=== PATIENT | female | born 2005 | race African-American/Black ===

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

== ENCOUNTER 2023-08-10 14:30 | Emergency (ER) | payer MEDICAID, OTHER, SELFPAY ==
[~2023-08-10] VITALS: Ht 175.3 cm; Wt 177.3 kg
[2023-08-10 14:30] VITALS: TEMP 97.8
[2023-08-10 15:13] LABS: BASO % 0.3 % (0.0-1.0); EOS # 0.2 10^3/uL (0.0-0.5); EOS % 1.7 % (0.0-3.0); HEMATOCRIT 35.3 % (36.0-47.0); HEMOGLOBIN 11.2 g/dl (12.0-15.5); LYMPH # 1.8 10^3/uL (1.5-5.0); LYMPH % 18.5 % (24.0-44.0); MEAN CORPUSCULAR HGB CONC 31.7 g/dl (32.0-36.5); MEAN CORPUSCULAR VOLUME 85.1 fl (80.0-96.0); MONO # 0.8 10^3/uL (0.0-0.8); MONO % 8.3 % (2.0-8.0); NEUTROPHILS # 6.9 10^3/uL (1.5-8.5); NEUTROPHILS % 70.9 % (36.0-66.0); PLATELET COUNT, AUTOMATED 266 10^3/uL (150-450); RED BLOOD COUNT 4.15 10^6/uL (4.00-5.40); WHITE BLOOD COUNT 9.7 10^3/uL (4.0-10.0)
[2023-08-10 15:30] LABS: INR 0.98; LIPASE 20 U/L (12-53); PARTIAL THROMBOPLASTIN TIME 29.1 SECONDS (24.8-34.2); PROTHROMBIN TIME 12.7 SECONDS (12.5-14.5)
[2023-08-10 15:32] LABS: ALBUMIN 3.2 G/DL (3.2-5.2); ALKALINE PHOSPHATASE 119 U/L (46-116); ALT/SGPT 19 U/L (7.0-40); AST/SGOT 11 U/L (<34); BILIRUBIN,DIRECT < 0.1 MG/DL (<0.4); BILIRUBIN,TOTAL 0.3 MG/DL (0.3-1.2); BLOOD UREA NITROGEN 6 MG/DL (9-23); CALCIUM LEVEL 9.2 MG/DL (8.5-10.1); CARBON DIOXIDE LEVEL 22 MMOL/L (20-31); CHLORIDE LEVEL 108 MMOL/L (98-107); CK-MB VALUE MASS < 1.0 NG/ML (<3.6); CREATININE FOR GFR 0.62 MG/DL (0.55-1.30); GLUCOSE, FASTING 91 MG/DL (60-100); POTASSIUM SERUM 3.9 MMOL/L (3.5-5.1); SODIUM LEVEL 137 MMOL/L (136-145); TOTAL PROTEIN 6.2 G/DL (5.7-8.2)
[2023-08-10 15:36] LABS: FREE T4 1.01 NG/DL (0.83-1.43); THYROID STIMULATING HORMONE 1.712 uIU/ML (0.48-4.17)
[2023-08-10 15:53] LABS: CPK CREATINE PHOSPHOKINASE 58 U/L (34-145); HCG, SERUM QUANTITATIVE 36283.1 MIU/ML (<4.2); MB/CK RELATIVE INDEX 1.72 (< OR =4)
[2023-08-10 17:36] LABS: APPEARANCE, URINE HAZY (CLEAR); BACTERIA, URINE AUTO NEGATIVE (NEGATIVE); BILIRUBIN, URINE AUTO NEGATIVE (NEGATIVE); BLOOD, URINE BLOOD NEGATIVE (NEGATIVE); CALCIUM OXALATE CRYSTALS LARGE; COLOR, URINE YELLOW (YELLOW); GLUCOSE, URINE (UA) AUTO NEGATIVE (NEGATIVE); KETONE, URINE AUTO NEGATIVE (NEGATIVE); LEUKOCYTE ESTERASE, URINE AUTO NEGATIVE (NEGATIVE); MUCUS, URINE SMALL (NEGATIVE); NITRITE, URINE AUTO NEGATIVE (NEGATIVE); PROTEIN, URINE AUTO NEGATIVE (NEGATIVE); RBC, URINE AUTO 3 /HPF (0-3); SPECIFIC GRAVITY URINE AUTO 1.016 (1.002-1.035); SQUAMOUS EPITHELIAL CELL UR AU 3 /HPF (0-6); UROBILINOGEN, URINE AUTO 0.2 mg/dL (0.0-2.0); WBC, URINE AUTO 4 /HPF (0-3)
[2023-08-10 18:00] VITALS: BP 137/66; O2SAT 100
== END 2023-08-10 18:24 | disposition home or self-care (01) ==
LOC: M ED 14:30
DX: O12.00 Gestational edema, unspecified trimester (principal); O20.8 Other hemorrhage in early pregnancy; R04.0 Epistaxis; R94.31 Abnormal electrocardiogram [ECG] [EKG]; Z91.030 Bee allergy status

== ENCOUNTER 2023-08-19 03:53 | Emergency (ER) | payer MEDICAID, OTHER ==
[~2023-08-19] VITALS: Ht 175.3 cm; Wt 175.5 kg
[2023-08-19 04:35] LABS: BASO % 0.2 % (0.0-1.0); EOS # 0.1 10^3/uL (0.0-0.5); EOS % 1.5 % (0.0-3.0); LYMPH # 1.1 10^3/uL (1.5-5.0); MEAN CORPUSCULAR HEMOGLOBIN 26.9 pg (27.0-33.0); MEAN CORPUSCULAR HGB CONC 31.6 g/dl (32.0-36.5); MEAN CORPUSCULAR VOLUME 85.2 fl (80.0-96.0); MONO # 0.6 10^3/uL (0.0-0.8); NEUTROPHILS # 7.1 10^3/uL (1.5-8.5); PLATELET COUNT, AUTOMATED 256 10^3/uL (150-450); RED BLOOD COUNT 4.46 10^6/uL (4.00-5.40)
[2023-08-19 04:59] LABS: LIPASE 20 U/L (12-53)
[2023-08-19 05:01] LABS: ALBUMIN 3.1 G/DL (3.2-5.2); ALKALINE PHOSPHATASE 116 U/L (46-116); ALT/SGPT 25 U/L (7.0-40); AST/SGOT 11 U/L (<34); BILIRUBIN,DIRECT 0.1 MG/DL (<0.4); BILIRUBIN,TOTAL 0.4 MG/DL (0.3-1.2); BLOOD UREA NITROGEN 7 MG/DL (9-23); CALCIUM LEVEL 8.5 MG/DL (8.5-10.1); CARBON DIOXIDE LEVEL 21 MMOL/L (20-31); CHLORIDE LEVEL 109 MMOL/L (98-107); CREATININE FOR GFR 0.51 MG/DL (0.55-1.30); GLUCOSE, FASTING 106 MG/DL (60-100); POTASSIUM SERUM 3.9 MMOL/L (3.5-5.1); SODIUM LEVEL 137 MMOL/L (136-145); TOTAL PROTEIN 6.3 G/DL (5.7-8.2)
[2023-08-19 05:27] LABS: HCG, SERUM QUALITATIVE POSITIVE (NEGATIVE)
[2023-08-19] MEDS: ONDANSETRON 4MG 2ML VIAL IV ONE (06:28)
[2023-08-19] MEDS: NS 1,000 ML IV ONE (06:28)
[2023-08-19] MEDS ORDERED: UNIS25TA5 PO (08:19)
[2023-08-19] MEDS ORDERED: ONDA-282 PO (08:19)
[2023-08-19] MEDS ORDERED: PYRI25TA2 PO (08:19)
[2023-08-19 09:02] VITALS: BP 145/72; TEMP 97.8; O2SAT 98
[2023-08-19] MEDS ORDERED: FAMO20TA PO (09:05)
[2023-08-19] MEDS: FAMOTIDINE 20 MG TAB PO ONE (09:15)
[2023-08-20] MEDS ORDERED: VENTAER INH (12:04)
== END 2023-08-19 09:21 | disposition home or self-care (01) ==
LOC: M ED 03:53
DX: O21.1 Hyperemesis gravidarum with metabolic disturbance (principal); O99.612 Diseases of the digestive system complicating pregnancy, second trimester; Z3A.12 12 weeks gestation of pregnancy; Z91.030 Bee allergy status; Z79.51 Long term (current) use of inhaled steroids
CPT/HCPCS: 76801; 80048; 80076; 81001; 83690; 84703; 85025; 96361; 96374; 99284; J2405

== ENCOUNTER 2023-08-20 05:36 | Emergency (ER) | payer OTHER ==
[~2023-08-20] VITALS: Ht 172.7 cm; Wt 173.3 kg
[~2023-08-20 05:36] MED LIST changes: +FAMO20TA PO; +ONDA-282 PO; +PYRI25TA2 PO; +UNIS25TA5 PO
[2023-08-20 08:01] LABS: BASO % 0.1 % (0.0-1.0); EOS % 0.2 % (0.0-3.0); HEMATOCRIT 35.1 % (36.0-47.0); HEMOGLOBIN 11.1 g/dl (12.0-15.5); LYMPH # 0.9 10^3/uL (1.5-5.0); LYMPH % 11.5 % (24.0-44.0); MEAN CORPUSCULAR HEMOGLOBIN 26.9 pg (27.0-33.0); MEAN CORPUSCULAR HGB CONC 31.6 g/dl (32.0-36.5); MONO # 0.7 10^3/uL (0.0-0.8); MONO % 9.1 % (2.0-8.0); NEUTROPHILS # 6.4 10^3/uL (1.5-8.5); NEUTROPHILS % 78.9 % (36.0-66.0); PLATELET COUNT, AUTOMATED 227 10^3/uL (150-450); RED BLOOD COUNT 4.13 10^6/uL (4.00-5.40); WHITE BLOOD COUNT 8.1 10^3/uL (4.0-10.0)
[2023-08-20 09:02] LABS: ALKALINE PHOSPHATASE 105 U/L (46-116); ALT/SGPT 19 U/L (7.0-40); AST/SGOT 9 U/L (<34); BILIRUBIN,DIRECT 0.1 MG/DL (<0.4); BILIRUBIN,TOTAL 0.4 MG/DL (0.3-1.2); BLOOD UREA NITROGEN < 5 MG/DL (9-23); CALCIUM LEVEL 8.3 MG/DL (8.5-10.1); CARBON DIOXIDE LEVEL 21 MMOL/L (20-31); CHLORIDE LEVEL 107 MMOL/L (98-107); CK-MB VALUE MASS < 1.0 NG/ML (<3.6); CPK CREATINE PHOSPHOKINASE 46 U/L (34-145); CREATININE FOR GFR 0.46 MG/DL (0.55-1.30); GLUCOSE, FASTING 95 MG/DL (60-100); MB/CK RELATIVE INDEX 2.17 (< OR =4); POTASSIUM SERUM 3.5 MMOL/L (3.5-5.1); SODIUM LEVEL 136 MMOL/L (136-145)
[2023-08-20] MEDS: ALBUTEROL 90 MCG/ACT 8GM HFA INHALER INH ONE (09:15)
[2023-08-20 09:44] LABS: CK-MB VALUE MASS < 1.0 NG/ML (<3.6)
[2023-08-20 09:45] LABS: CPK CREATINE PHOSPHOKINASE 42 U/L (34-145); MB/CK RELATIVE INDEX 2.38 (< OR =4)
[2023-08-20 11:33] LABS: CK-MB VALUE MASS < 1.0 NG/ML (<3.6)
[2023-08-20 11:34] LABS: CPK CREATINE PHOSPHOKINASE 44 U/L (34-145); MB/CK RELATIVE INDEX 2.27 (< OR =4)
[2023-08-20] MEDS ORDERED: VENTAER INH (12:04)
[2023-08-20 12:32] VITALS: BP 153/73; TEMP 97.3; O2SAT 99
== END 2023-08-20 12:44 | disposition home or self-care (01) ==
LOC: M ED 05:36
DX: R07.9 Chest pain, unspecified (principal); J98.01 Acute bronchospasm; R00.0 Tachycardia, unspecified; I25.2 Old myocardial infarction; Z91.030 Bee allergy status; Z79.51 Long term (current) use of inhaled steroids

== ENCOUNTER → 2023-09-06 | Outpatient (CLI) | payer OTHER ==
[~2023-09-06] MED LIST changes: +VENTAER INH
== END ==
LOC: M WHC 10:21
PROVIDERS: ATTEND Obstetrics & Gynecology
DX: Z53.9 Procedure and treatment not carried out, unspecified reason (principal)

== ENCOUNTER → 2023-09-06 | Outpatient (CLI) | payer OTHER ==
[2023-09-06 14:26] LABS: HEMATOCRIT 36.2 % (36.0-47.0); HEMOGLOBIN 11.5 g/dl (12.0-15.5); MEAN CORPUSCULAR HEMOGLOBIN 27.1 pg (27.0-33.0); MEAN CORPUSCULAR HGB CONC 31.8 g/dl (32.0-36.5); MEAN CORPUSCULAR VOLUME 85.2 fl (80.0-96.0); PLATELET COUNT, AUTOMATED 231 10^3/uL (150-450); RED BLOOD COUNT 4.25 10^6/uL (4.00-5.40); WHITE BLOOD COUNT 8.3 10^3/uL (4.0-10.0)
[2023-09-06 15:09] LABS: HEMOGLOBIN A1c 4.8 % (4.0-6.0)
[2023-09-06 15:18] LABS: HIV 1&2 SCREEN NEGATIVE (NEGATIVE)
[2023-09-06 15:27] LABS: HEPATITIS C VIRUS ABY INDEX < 0.02 INDEX (<0.8)
== END ==
LOC: M PLALAB 11:09
PROVIDERS: ATTEND Obstetrics & Gynecology
DX: Z31.430 Encounter of female for testing for genetic disease carrier status for procreative management (principal); Z3A.15 15 weeks gestation of pregnancy

== ENCOUNTER → 2023-09-16 | Outpatient (CLI) | payer OTHER | LOC: M PLALAB 15:20 | PROVIDERS: ATTEND Obstetrics & Gynecology | DX: Z34.02 Encounter for supervision of normal first pregnancy, second trimester (principal) ==

== ENCOUNTER → 2023-10-10 | Outpatient (CLI) | payer OTHER | LOC: M WHC 13:17 | PROVIDERS: ATTEND Obstetrics & Gynecology | DX: Z34.82 Encounter for supervision of other normal pregnancy, second trimester (principal) ==

== ENCOUNTER → 2023-10-11 | Outpatient (REF) | payer OTHER ==
[2023-10-11 17:25] LABS: GC DNA AMPLIFICATION NEGATIVE (NEGATIVE)
== END ==
LOC: M PLALAB 10:16
PROVIDERS: ATTEND Obstetrics & Gynecology
DX: Z34.81 Encounter for supervision of other normal pregnancy, first trimester (principal)

== ENCOUNTER → 2023-11-12 | Outpatient (CLI) | payer OTHER | LOC: M PLALAB 08:32 | PROVIDERS: ATTEND Obstetrics & Gynecology | DX: Z34.82 Encounter for supervision of other normal pregnancy, second trimester (principal); Z3A.15 15 weeks gestation of pregnancy ==

== ENCOUNTER → 2023-11-18 | Outpatient (CLI) | payer OTHER | LOC: M WHC 10:07 | PROVIDERS: ATTEND Advanced Practice Midwife | DX: Z34.02 Encounter for supervision of normal first pregnancy, second trimester (principal); Z3A.25 25 weeks gestation of pregnancy ==

== ENCOUNTER 2023-11-25 10:28 | Emergency (ER) | payer OTHER ==
[~2023-11-25] VITALS: Ht 175.3 cm; Wt 175.3 kg
[2023-11-25 10:31] VITALS: BP 141/67; TEMP 97.9; O2SAT 97
[2023-11-25] MEDS ORDERED: ACET-907 PO (11:41)
[2023-11-25] MEDS ORDERED: PENI500T PO (12:15)
== END 2023-11-25 12:26 | disposition home or self-care (01) ==
LOC: M ED 10:28
DX: K04.7 Periapical abscess without sinus (principal); K08.89 Other specified disorders of teeth and supporting structures; J45.909 Unspecified asthma, uncomplicated; Z91.030 Bee allergy status; Z79.1 Long term (current) use of non-steroidal anti-inflammatories (NSAID); Z79.2 Long term (current) use of antibiotics; Z79.51 Long term (current) use of inhaled steroids

== ENCOUNTER 2024-02-02 17:02 | Outpatient (CLI) | payer OTHER ==
[~2024-02-02] VITALS: Ht 170.2 cm; Wt 181.9 kg
[~2024-02-02 17:02] MED LIST changes: +ACET-907 PO; +PENI500T PO
[2024-02-02] MEDS ORDERED: PRENTAB9 PO (17:26)
[2024-02-02 17:29] VITALS: BP 137/80
[2024-02-02] MEDS ORDERED: HOME MED LIST COMPLETE! XX SCH (17:30)
== END 2024-02-02 18:35 | disposition home or self-care (01) ==
LOC: M LDO 17:02
PROVIDERS: ATTEND Obstetrics & Gynecology
DX: O26.893 Other specified pregnancy related conditions, third trimester (principal); O99.213 Obesity complicating pregnancy, third trimester; O98.513 Other viral diseases complicating pregnancy, third trimester; O99.613 Diseases of the digestive system complicating pregnancy, third trimester; R60.9 Edema, unspecified; E66.01 Morbid (severe) obesity due to excess calories; B00.9 Herpesviral infection, unspecified; R12 Heartburn; Z3A.36 36 weeks gestation of pregnancy
CPT/HCPCS: 59025; G0463

== ENCOUNTER → 2024-02-06 | Outpatient (REF) | payer OTHER ==
[~2024-02-06] MED LIST changes: +PRENTAB9 PO
== END ==
LOC: M SFHCWAGY 08:00
PROVIDERS: ATTEND Obstetrics & Gynecology
DX: Z36.85 Encounter for antenatal screening for Streptococcus B (principal); Z3A.36 36 weeks gestation of pregnancy

== ENCOUNTER 2024-02-20 05:15 | Inpatient (IN) | payer OTHER ==
[2024-02-20] VITALS (10 sets, daily range): BP systolic 125–146; BP diastolic 64–75; TEMP 97.4; O2SAT 97–98
[~2024-02-20] VITALS: Ht 170.2 cm; Wt 183.2 kg
[~2024-02-20 05:15] MED LIST changes: +VALA1TAB5 PO
[2024-02-20] MEDS ORDERED: ceFAZolin SOD 3 GM IV Place Holder IV ONE (05:25)
[2024-02-20] MEDS: LACTATED RINGER'S 1000 ML IV STA (05:52)
[2024-02-20 05:56] LABS: HEMATOCRIT 33.7 % (36.0-47.0); HEMOGLOBIN 10.2 g/dl (12.0-15.5); MEAN CORPUSCULAR HEMOGLOBIN 25.2 pg (27.0-33.0); MEAN CORPUSCULAR HGB CONC 30.3 g/dl (32.0-36.5); MEAN CORPUSCULAR VOLUME 83.2 fl (80.0-96.0); PLATELET COUNT, AUTOMATED 279 10^3/uL (150-450); RED BLOOD COUNT 4.05 10^6/uL (4.00-5.40); WHITE BLOOD COUNT 11.6 10^3/uL (4.0-10.0)
[2024-02-20 07:20] LABS: HEPATITIS C VIRUS ABY INDEX 0.02 INDEX (<0.8)
[2024-02-20] MEDS: BICITRA 30ML SOLN UDC PO ONE (07:22)
[2024-02-20] MEDS: LR 1,000 ML IV SCH (07:23)
[2024-02-20] MEDS: ceFAZolin SOD 2 GM in IV 1 EA IV ONE (07:23)
[2024-02-20] MEDS: ceFAZolin SOD 1 GM in DEXTROSE 5% (D5W) ADV/MINI-BAG 50 ML IV ONE (07:23)
[2024-02-20] MEDS ORDERED: ONDANSETRON 4MG 2ML VIAL As Ordered ONE (08:11)
[2024-02-20] MEDS ORDERED: KETOROLAC 60MG 2ML VIAL As Ordered ONE (08:11)
[2024-02-20] MEDS ORDERED: MORPHINE PRES-FREE INJ 10 MG/10 ML VIAL As Ordered ONE (08:11)
[2024-02-20] MEDS ORDERED: OXYTOCIN 30UNITS IN 0.9% NaCl 500ML IV BAG As Ordered ONE (08:12)
[2024-02-20] MEDS ORDERED: ACETAMINOPHEN 1000MG/100ML IV BAG As Ordered ONE (08:12)
[2024-02-20] MEDS ORDERED: dexmedeTOMIDine (4MCG/ML)200MCG/50ML BTL (PRECEDEX) As Ordered ONE (08:53)
[2024-02-20] MEDS ORDERED: PHENYLephrine 500MCG 5ML (100MCG/ML) SYRINGE As Ordered ONE (08:59)
[2024-02-20] MEDS: PRENATAL VITAMINS CHEWABLE TABLET PO SCH (09:00)
[2024-02-20] MEDS: valACYclovir HCL 500 MG TAB PO SCH (09:00)
[2024-02-20] MEDS ORDERED: ePHEDrine SULFATE 25 MG/5 ML(5MG/ML) SYRINGE As Ordered ONE (09:06)
[2024-02-20 09:24] LABS: CORD GAS HCO3 A 20.7 MMOL/L; CORD GAS O2 SAT A < 15.0 %; CORD GAS PCO2 A 73.6 mmHg; CORD GAS PH A 7.068 UNITS; CORD GAS PO2 A 10.9 mmHg
[2024-02-20] MEDS ORDERED: NALOXONE INJ 0.4MG/1ML VIAL IV PRN ×2 (09:25)
[2024-02-20] MEDS: SLF 3 ML SYR IV SCH (09:25)
[2024-02-20] MEDS ORDERED: **NOTE PATIENT COMMENT** MISC XX SCH (09:25)
[2024-02-20] MEDS ORDERED: ONDANSETRON 4MG 2ML VIAL IV PRN ×2 (09:25→09:45)
[2024-02-20] MEDS ORDERED: METOCLOPRAMIDE INJ 10MG/2ML VIAL IV PRN ×2 (09:25→09:45)
[2024-02-20] MEDS ORDERED: fentaNYL 100 MCG/2 ML INJECTION IV PRN (09:25)
[2024-02-20 09:26] LABS: CORD GAS ABE V -10.1; CORD GAS HCO3 V 21.6 MMOL/L; CORD GAS O2 SAT V 26.8 %; CORD GAS PCO2 V 73.8 mmHg; CORD GAS PH V 7.085 UNITS; CORD GAS PO2 V 16.5 mmHg; CORD GAS SBC V 15.1 MMOL/L; CORD GAS TCO2 V 23.9 MMOL/L
[2024-02-20 09:32] LABS: CORD GAS SBC A 20.7 MMOL/L
[2024-02-20] MEDS: ACETAMINOPHEN 500 MG TAB PO SCH (09:45)
[2024-02-20] MEDS ORDERED: oxyCODONE 5MG TAB PO PRN (09:45)
[2024-02-20] MEDS ORDERED: RHOGAM 300MCG (1500IU) INJ IM SCH (09:45)
[2024-02-20] MEDS ORDERED: DOCUSATE SODIUM 100MG CAPSULE PO PRN (09:45)
[2024-02-20] MEDS ORDERED: SIMETHICONE 80MG CHEW TAB PO PRN (09:45)
[2024-02-20] MEDS ORDERED: LOVE1INJ SC (09:58)
[2024-02-20] MEDS ORDERED: IBUP-1022 PO (09:58)
[2024-02-20] MEDS ORDERED: COLA100C5 PO (09:58)
[2024-02-20] MEDS ORDERED: OXYC-517 PO (09:58)
[2024-02-20] MEDS ORDERED: ACET-683 PO (09:58)
[2024-02-20] MEDS: OXYTOCIN DRIP 30 UNITS in IV 1 EA IV SCH (10:06)
[2024-02-20] MEDS ORDERED: diphenhydrAMINE 50MG/ML VIAL As Ordered ONE (10:51)
[2024-02-20] MEDS: diphenhydrAMINE 50MG/ML VIAL IV PRN (10:54)
[2024-02-20] MEDS: KETOROLAC 30 MG/ML 1ML VIAL IV SCH (15:02)
[2024-02-20] MEDS: LR 500 ML IV ONE (19:45)
[2024-02-20] MEDS: ENOXAPARIN 40MG/0.4ML SYRINGE (J1650 PER 10MG) SC SCH (20:59)
[2024-02-21 06:00] VITALS: BP 110/52; O2SAT 98
[2024-02-21 07:01] LABS: HEMATOCRIT 27.3 % (36.0-47.0); HEMOGLOBIN 8.4 g/dl (12.0-15.5); MEAN CORPUSCULAR HEMOGLOBIN 25.7 pg (27.0-33.0); MEAN CORPUSCULAR HGB CONC 30.8 g/dl (32.0-36.5); MEAN CORPUSCULAR VOLUME 83.5 fl (80.0-96.0); PLATELET COUNT, AUTOMATED 217 10^3/uL (150-450); RED BLOOD COUNT 3.27 10^6/uL (4.00-5.40); WHITE BLOOD COUNT 10.1 10^3/uL (4.0-10.0)
[2024-02-21 10:00] VITALS: BP 141/67; O2SAT 99
[2024-02-21] MEDS ORDERED: HOME MED LIST COMPLETE! XX SCH (10:20)
[2024-02-21] MEDS: IBUPROFEN 600MG TAB PO SCH (13:09)
[2024-02-21 14:00] VITALS: BP 143/64; O2SAT 99
[2024-02-21 18:00] VITALS: BP 144/88; O2SAT 96
[2024-02-21 22:00] VITALS: BP 134/62; O2SAT 98
[2024-02-21] MEDS: oxyCODONE 5MG TAB PO PRN (23:39)
[2024-02-22 02:00] VITALS: BP 126/58; O2SAT 97
[2024-02-22 06:00] VITALS: BP 138/76; O2SAT 99
[2024-02-22] MEDS: MEASLES,MUMPS,RUBELLA VACCINE INJ (MMR-II) SC.IMMUN ONE (09:00)
== END 2024-02-22 13:08 | disposition home or self-care (01) | DRG 540 ==
LOC: M LDI 05:15 → M OBS 11:17
PROVIDERS: ADMIT Obstetrics & Gynecology; ATTEND Obstetrics & Gynecology
PROC: 10D00Z1 Extraction of Products of Conception, Low, Open Approach (ICD-10-PCS; principal; 2024-02-20 07:30)
DX: O98.32 Other infections with a predominantly sexual mode of transmission complicating childbirth (principal); E66.01 Morbid (severe) obesity due to excess calories; O99.214 Obesity complicating childbirth; A60.09 Herpesviral infection of other urogenital tract; Z37.0 Single live birth; Z3A.39 39 weeks gestation of pregnancy